=== PATIENT | male | born 1985 | race Caucasian/White ===

== ENCOUNTER 2018-11-13 18:46 | Observation (INO) | payer SELFPAY, OTHER ==
[2018-11-13 19:29] LABS: ADD MAN DIFF? NO
[2018-11-13 19:30] LABS: WHITE BLOOD COUNT 17.4 10^3/ul (4.8-10.8)
[2018-11-13 19:30] LABS: BASOPHIL # 0.1 10^3/ul (0.0-0.1); BASOPHILS % 0.5 % (0.0-2.0); EOSINOPHILS # 0.5 10^3/ul (0.0-0.5); HEMATOCRIT 51.3 % (42.0-52.0); HEMOGLOBIN 17.5 g/dl (14.0-18.0); LYMPHOCYTES # 1.6 10^3/ul (0.8-2.9); MEAN CORPUSCULAR HEMOGLOBIN 28.9 pg (29.0-33.0); MEAN CORPUSCULAR HGB CONC 34.1 g/dl (32.0-37.0); MEAN CORPUSCULAR VOLUME 84.8 fl (82.0-101.0); MEAN PLATELET VOLUME 11.5 fl (7.4-10.4); MONOCYTE # 0.8 10^3/ul (0.3-0.9); MONOCYTES % 4.7 % (0.0-11.0); NEUTROPHIL # 14.3 10^3/ul (1.6-7.5); NEUTROPHILS % 82.4 % (39.0-77.0); PLATELET COUNT 248 10^3/UL (140-415); RED BLOOD COUNT 6.05 10^6/ul (4.70-6.10); RED CELL DISTRIBUTION WIDTH 12.9 % (11.5-14.5)
[2018-11-13 19:53] LABS: ANION GAP 13 (5-13); BLOOD UREA NITROGEN 16 mg/dl (7-20); CALCIUM 9.7 mg/dl (8.4-10.2); CARBON DIOXIDE 31 mmol/L (21-31); CHLORIDE 97 mmol/L (97-110); CREATININE 0.85 mg/dl (0.61-1.24); Estimated GFR > 60 mL/min (>60); GLUCOSE 118 mg/dl (70-220); POTASSIUM 4.1 mmol/L (3.5-5.1); SODIUM 141 mmol/L (135-144)
[2018-11-13] MEDS: SOD CHLORIDE 0.9% 500 ML IV (19:53)
[2018-11-13] MEDS: METHYLPREDNISOLONE 125 MG INJ IV (19:53)
[2018-11-13] MEDS: IPRATROPIUM (NEB) 0.5 MG/2.5 ML AMP INH (19:56)
[2018-11-13] MEDS: ALBUTEROL 0.5% (NEB) 2.5 MG/0.5 ML AMP INH (19:57)
[2018-11-13 20:05] LABS: TROPONIN-I < 0.012 ng/ml (0.000-0.120)
[2018-11-13] MEDS: NICARDipine HCL 30 MG CAPSULE PO (23:46)
[2018-11-14] MEDS ORDERED: BISACODYL (EC) 5 MG TAB PO
[2018-11-14] MEDS ORDERED: ONDANSETRON 4 MG TAB PO
[2018-11-14] MEDS ORDERED: NACL 0.9% 3 ML SYG IV
[2018-11-14] MEDS ORDERED: DOCUSATE SODIUM 100 MG CAP PO
[2018-11-14] MEDS ORDERED: ACETAMINOPHEN 325 MG TAB PO ×2
[2018-11-14] MEDS ORDERED: ONDANSETRON 4 MG INJ IV
[2018-11-14] MEDS: IPRATROPIUM (NEB) 0.5 MG/2.5 ML AMP HHN ×4 (02:19→13:37)
[2018-11-14] MEDS: LEVALBUTEROL (NEB) 1.25 MG/0.5 ML AMP HHN ×4 (02:19→13:29)
[2018-11-14] MEDS ORDERED: METHYLPREDNISOLONE 125 MG INJ IV (06:00)
[2018-11-14 06:10] LABS: ADD MAN DIFF? NO
[2018-11-14 06:20] LABS: BASOPHILS % 0.1 % (0.0-2.0); HEMOGLOBIN 17.4 g/dl (14.0-18.0); LYMPHOCYTES # 0.7 10^3/ul (0.8-2.9); LYMPHOCYTES % 5.3 % (15.0-51.0); MEAN CORPUSCULAR HEMOGLOBIN 29.1 pg (29.0-33.0); MEAN CORPUSCULAR HGB CONC 34.1 g/dl (32.0-37.0); MEAN CORPUSCULAR VOLUME 85.4 fl (82.0-101.0); MEAN PLATELET VOLUME 11.7 fl (7.4-10.4); MONOCYTE # 0.1 10^3/ul (0.3-0.9); NEUTROPHIL # 11.4 10^3/ul (1.6-7.5); NEUTROPHILS % 92.9 % (39.0-77.0); PLATELET COUNT 240 10^3/UL (140-415); RED BLOOD COUNT 5.97 10^6/ul (4.70-6.10); RED CELL DISTRIBUTION WIDTH 13.1 % (11.5-14.5)
[2018-11-14 06:20] LABS: WHITE BLOOD COUNT 12.3 10^3/ul (4.8-10.8)
[2018-11-14] MEDS: PANTOPRAZOLE (EC) 40 MG TAB PO (06:25)
[2018-11-14] MEDS: LEVOFLOXACIN 750 MG TABLET PO (06:26)
[2018-11-14] MEDS: METHYLPREDNISOLONE 40 MG INJ IV ×2 (06:26→14:28)
[2018-11-14 06:41] LABS: ALANINE AMINOTRANSFERASE 18 IU/L (13-69); ALBUMIN 4.7 g/dl (3.3-4.9); ALBUMIN/GLOBULIN RATIO 1.11; ALKALINE PHOSPHATASE 65 IU/L (42-121); ANION GAP 20 (5-13); ASPARTATE AMINO TRANSFERASE 47 IU/L (15-46); BILIRUBIN,INDIRECT 0.6 mg/dl (0-1.1); BILIRUBIN,TOTAL 0.6 mg/dl (0.2-1.3); BLOOD UREA NITROGEN 17 mg/dl (7-20); CALCIUM 10.2 mg/dl (8.4-10.2); CARBON DIOXIDE 26 mmol/L (21-31); CHLORIDE 97 mmol/L (97-110); CHOL/HDL RATIO 4.6 RATIO; CHOLESTEROL 186 mg/dl (100-200); Estimated GFR > 60 mL/min (>60); GLUCOSE 177 mg/dl (70-220); HDL CHOLESTEROL 40 mg/dl (28-63); LDL CHOLESTEROL,CALCULATED 137 mg/dl; MAGNESIUM 2.1 mg/dl (1.7-2.5); SODIUM 143 mmol/L (135-144); TOTAL PROTEIN 8.9 g/dl (6.1-8.1); TRIGLYCERIDES 46 mg/dl (0-149)
[2018-11-14 07:09] LABS: THYROID STIMULATING HORMONE 0.202 MIU/L (0.465-4.680)
[2018-11-14 07:46] LABS: HEMOGLOBIN A1C 5.2 % (0-5.9)
[2018-11-19 12:22] LABS: PROCALCITONIN <0.10 ng/mL (<0.10)
== END 2018-11-14 16:55 | disposition home or self-care (01) ==
LOC: E/R 18:46 → TEL 23:47
DX: J06.9 Acute upper respiratory infection, unspecified (principal); R05 Cough; R50.9 Fever, unspecified; Z87.891 Personal history of nicotine dependence
CPT/HCPCS: 71045; 80048; 80053; 80061; 83036; 83735; 84145; 84443; 84484; 85025; 93005; 94640; 94644; 96361; 96374; 99285-25; G0378

== ENCOUNTER 2018-12-24 08:24 | Emergency (ER) | payer SELFPAY ==
[2018-12-24] MEDS: predniSONE 20 MG TAB PO (09:37)
[2018-12-24] MEDS: IPRATROPIUM (NEB) 0.5 MG/2.5 ML AMP NEB (09:53)
[2018-12-24] MEDS: ALBUTEROL 0.083% (NEB) 2.5 MG/3 ML AMP NEB (09:53)
== END 2018-12-24 10:52 | disposition home or self-care (01) ==
LOC: FTE 08:24
DX: J45.901 Unspecified asthma with (acute) exacerbation (principal); Z87.891 Personal history of nicotine dependence
CPT/HCPCS: 71045; 94664; 99283-25